=== PATIENT | female | born 1975 ===

== ENCOUNTER 2019-02-28 15:52 | Outpatient (CLI) | payer BC ==
--- NOTE | 2019-02-28 16:08 | RAD ---
Abdomen one view HISTORY: Evaluate for IUD placement. FINDINGS: Gas and stool over the colon and rectum. Small bowel gas pattern nonspecific. No radiopaque foreign bodies are apparent over the abdomen or pelvis. IMPRESSION: Nonvisualization of the IUD. No metallic foreign bodies are seen over the pelvis.
== END 2019-02-28 15:53 | disposition home or self-care (01) ==
LOC: SCSRAD 15:52
PROVIDERS: ATTEND Family Medicine
DX: Z30.431 Encounter for routine checking of intrauterine contraceptive device (principal)
CPT/HCPCS: 74018